=== PATIENT | male | born 1990 | race American Indian/Alaskan Native ===

== ENCOUNTER 2022-02-10 11:55 | Emergency (ER) | payer SELFPAY ==
[2022-02-10 12:38] VITALS: BP 127/86
--- NOTE | 2022-02-10 15:27 | Emergency Department Report ---
ED General Adult HPI - General Chief complaint: Medical Clearance Stated complaint: EYES EVAL Time Seen by Provider: 02/10/22 14:08 Source: patient Mode of arrival: Ambulatory Limitations: No Limitations - History of Present Illness Initial comments: 32-year-old black male with no past medical history presents to the emergency department for clearance for plasma donation. He states that when he went to donate plasma today, they said that he is pupils were nonreactive to light bilaterally and told him to come to the emergency department for evaluation before getting clearance to donate. Patient denies headache, vision changes, abnormal gait, inability to talk, unilateral weakness. Patient is without any complaints of at this time. MD Complaint: Medical clearance to donate plasma Severity scale (0 -10): 0 Associated Symptoms: denies: confusion, chest pain, cough, diaphoresis, fever/chills, headaches, loss of appetite, malaise, nausea/vomiting, rash, seizure, shortness of breath, syncope, weakness - Related Data Allergies Allergy/AdvReac Type Severity Reaction Status Date / Time No Known Allergies Allergy Unverified 02/10/22 12:38 ED Review of Systems ROS: Stated complaint: EYES EVAL Other details as noted in HPI Comment: All other systems reviewed and negative Constitutional: denies: chills, diaphoresis, fever, malaise, weakness Eyes: denies: eye pain, eye discharge, vision change ENT: denies: ear pain, throat pain, dental pain, hearing loss, epistaxis, congestion Respiratory: denies: cough, shortness of breath, wheezing Cardiovascular: denies: chest pain, palpitations, dyspnea on exertion, orthopnea, edema, syncope, paroxysmal nocturnal dyspnea Gastrointestinal: denies: abdominal pain, nausea, vomiting Genitourinary: denies: urgency, dysuria Musculoskeletal: denies: back pain Skin: denies: rash, lesions Neurological: denies: headache, weakness Psychiatric: denies: anxiety, depression ED Past Medical Hx - Past Medical History Previous Medical History?: No - Surgical History Past Surgical History?: No ED Physical Exam - General Limitations: No Limitations General appearance: alert, in no apparent distress - Head Head exam: Present: atraumatic, normocephalic - Eye Eye exam: Present: normal appearance, PERRL, EOMI. Absent: scleral icterus, conjunctival injection, periorbital swelling, periorbital tenderness Pupils: Present: normal accommodation - Expanded Eye Exam Expanded Pupils: Regular, Round: Bilateral, Reactive: Bilateral Sclera/Conjunctival: Normal Inspection: Bilateral - ENT ENT exam: Present: normal exam, normal orophraynx - Neck Neck exam: Present: normal inspection, full ROM. Absent: tenderness, meningismus, lymphadenopathy - Respiratory Respiratory exam: Present: normal lung sounds bilaterally. Absent: respiratory distress, wheezes, rales, rhonchi, stridor, chest wall tenderness, accessory muscle use - Cardiovascular Cardiovascular Exam: Present: regular rate, normal heart sounds - GI/Abdominal GI/Abdominal exam: Present: soft, normal bowel sounds. Absent: distended, tenderness, rebound, rigid - Extremities Exam Extremities exam: Present: normal inspection, full ROM, normal capillary refill. Absent: tenderness, pedal edema, joint swelling, calf tenderness - Back Exam Back exam: Present: normal inspection, full ROM. Absent: tenderness, CVA tenderness (R), CVA tenderness (L), vertebral tenderness - Neurological Exam Neurological exam: Present: alert, oriented X3, CN II-XII intact, normal gait, reflexes normal. Absent: motor sensory deficit - Expanded Neurological Exam Expanded Patient oriented to: Present: person, place, time Speech: Present: fluid speech Cranial nerves: EOM's Intact: Normal, Gag Reflex: Normal, Tongue Deviation: Normal, Nystagmus: Normal, Facial Sensation: Normal Ataxia: Absent: yes Cerebellar function: [place]: Normal Sensory exam: Upper Extremity Light Touch: Normal, Upper Extremity Temperature: Normal, Lower Extremity Light Touch: Normal, Lower Extremity Temperature: Normal Motor strength exam: RUE: 5, LUE: 5, RLE: 5, LLE: 5 Best Eye Response ([place]): (4) open spontaneously Best Motor Response ([place]): (6) obeys commands Best Verbal Response ([place]): (5) oriented [place] Total: 15 - Psychiatric Psychiatric exam: Present: normal affect, normal mood - Skin Skin exam: Present: warm, dry, intact, normal color ED Course Vital Signs 02/10/22 12:36 Temperature 98.7 F Pulse Rate 60 Respiratory 18 Rate Blood Pressure 127/86 [Left] O2 Sat by Pulse 99 Oximetry ED Medical Decision Making - Medical Decision Making 32-year-old black male with no past medical history presents to the emergency department for clearance for plasma donation. He states that when he went to donate plasma today, they said that he is pupils were nonreactive to light bilaterally and told him to come to the emergency department for evaluation before getting clearance to donate. Patient denies headache, vision changes, abnormal gait, inability to talk, unilateral weakness. Patient is without any complaints of at this time. Physical exam unremarkable. Patient without any complaints of. Neuro exam completely intact. Patient appears to be suitable to follow back up at the plasma center for further evaluation. He is advised to return to the emergency department as needed. He verbalizes understanding of and agreement with plan of care. Critical care attestation.: If time is entered above; I have spent that time in minutes in the direct care of this critically ill patient, excluding procedure time. ED Disposition Clinical Impression: Well adult exam Disposition: HOME / SELF CARE / HOMELESS Is pt being admited?: No Does the pt Need Aspirin: No Condition: Stable Instructions: Preventive Care 21-39 Years Old, Male, Health Maintenance, Male Additional Instructions: Your pupils were equal and reactive to light with normal accommodation. Your complete neurologic exam was within normal limits. No abnormal findings noted on complete physical exam. Your vital signs were stable. You are medically cleared to follow back up at the plasma center. Return to the emergency department as needed. Referrals: MARNIE SHAW MD [Staff Physician] - 3-5 Days Time of Disposition: 15:32
== END 2022-02-10 21:27 | disposition home or self-care (01) ==
LOC: ED 11:55
DX: Z01.00 Encounter for examination of eyes and vision without abnormal findings (principal)
CPT/HCPCS: 99282